=== PATIENT | female | born 1995 | race African-American/Black ===

== ENCOUNTER 2024-08-07 09:26 | Emergency (ER) | payer MEDICAID ==
[~2024-08-07] VITALS: Ht 172.7 cm; Wt 58.0 kg
[2024-08-07 09:29] VITALS: O2SAT 96
[2024-08-07 09:41] VITALS: TEMP 37.4; O2SAT 100
[2024-08-07] MEDS: BACITRACIN ZINC OINT UDPKT TOP ONE (10:45)
[2024-08-07 10:58] VITALS: BP 127/87; PULSE 67; RESP 16
[2024-08-07] MEDS: KETOROLAC 30MG/ML VIAL IM ONE (10:58)
[2024-08-07] MEDS ORDERED: LIDOCAINE HCL/EPINEPHRINE 1%-EPI 1:100,000 20ML VIAL INFIL ONE (12:45)
== END 2024-08-07 13:32 | disposition home or self-care (01) ==
LOC: ER 09:26
DX: S81.812A Laceration without foreign body, left lower leg, initial encounter (principal); W19.XXXA Unspecified fall, initial encounter; Y93.89 Activity, other specified; Y92.89 Other specified places as the place of occurrence of the external cause; Y99.8 Other external cause status
CPT/HCPCS: 12001; 96372; 99283; J1885; J2004; Z7610 ×2